=== PATIENT | female | born 1945 | race African-American/Black ===

== ENCOUNTER → 2022-05-20 | Outpatient (CLI) | payer OTHER ==
[~2022-05-20] MED LIST: REGADENOSON 0.4 MG/5 ML PF SYG IVP SCH
== END | disposition home or self-care (01) ==
LOC: RAH 10:00
PROVIDERS: ATTEND Internal Medicine Cardiovascular Disease
DX: I20.9 Angina pectoris, unspecified (principal)
CPT/HCPCS: 78452; 96374; 93017; J2785; A9500 ×2